=== PATIENT | male | born 1975 | race Two or more races ===

== ENCOUNTER 2024-07-08 13:16 | Emergency (ER) | payer MEDICAID, SELFPAY ==
[2024-07-08 13:25] VITALS: BP 148/98; PULSE 103; RESP 18; TEMP 37; O2SAT 95; BMI 33.0
--- NOTE | 2024-07-08 13:32 | XR_ITS ---
Examination: Shoulder,left, 3 views Technique: Shoulder AP internal rotation, AP external rotation, Y view shoulder, 3 views Exam date and time :July 08, 2024 1442 hours INDICATIONS: Patient fell last week with injury to the shoulder, shoulder pain. FINDINGS: No shoulder fracture or dislocation No AC joint separation IMPRESSION: No shoulder fracture or dislocation
--- NOTE | 2024-07-08 13:32 | EDNOTE_ITS ---
<Statement entered by Ling Ballesteros MD - 07/09/24 06:24> As co-signing physician, I was present and available for consult prn. I concur with the plan and care as documented by the midlevel provider. Upper Extremity Injury RME/HPI General Chief Complaint: Extremity Injury, Upper Stated Complaint: Left shoulder pain Time Seen by Provider: 07/08/24 13:20 Source: patient Arrival date/time: 07/08/24 13:16 48-year-old male with no known medical history presents to the emergency room with a chief complaint of pain and tenderness to his left shoulder after an injury that occurred 3 days ago Mode of arrival: ambulatory Limitations: no limitations Related Data Previous Rx's ?Medication ?Instructions ?Recorded hydroxyzine HCl 25 mg tablet 25 mg PO TID PRN itching #30 tabs 10/12/21 triamcinolone acetonide 0.1 % 1 applic topical QDAY #6 0 mL 10/12/21 lotion Allergies Allergy/AdvReac Type Severity Reaction Status Date / Time No Known Allergies Allergy Verified 07/08/24 13:20 Review of Systems Review of Systems Systems Reviewed: All systems reviewed, normal except as documented Constitutional Constitutional: Reports system reviewed and no additional complaints, except as documented, Denies fatigue, Denies fever(s), Denies headache(s) and Denies weakness Eyes Eyes: Reports system reviewed and no additional complaints, except as documented, Denies blurry vision and Denies change in vision ENT Ears, Nose, Mouth, and Throat: Reports system reviewed and no additional c omplaints, except as documented, Denies otalgia, Denies headache(s), Denies nasal congestion, Denies throat swelling and Denies vertigo Cardiovascular Cardiovascular: Reports system reviewed and no additional complaints, except as documented, Denies chest pain, Denies dyspnea and Denies dyspnea on exertion Respiratory Respiratory: Reports system reviewed and no additional complaints, except as documented, Denies chest congestion, Denies cough, Denies dyspnea, Denies dyspnea on exertion and Denies wheezing Gastrointestinal Gastrointestinal: Reports system reviewed and no additional complaints, except as documented, Denies abdominal pain, Denies cramping, Denies nausea and Denies vomiting Genitourinary Genitourinary: Reports system reviewed and no additional complaints, except as documented, Denies dysuria and Denies hematuria Musculoskeletal Musculoskeletal: Reports system reviewed and no additional complaints, except as documented, Reports arthralgias, Denies back pain, Reports joint swelling and Reports limited range of motion Integumentary/Breasts Skin/Breast: Reports system reviewed and no additional complaints, except as documented and Denies wounds Neurologic Neurologic: Reports system reviewed and no additional complaints, except as documented, Denies confusion, Denies headache(s), Denies lack of coordination, Denies vertigo and Denies weakness Psychiatric Psychiatric: Reports system reviewed and no additional complaints, except as documented, Denies anxiety, Denies confusion, Denies depression, Denies paranoia, Denies suicidal ideation and Denies tactile hallucinations Endocrine Endocrine: Reports system reviewed and no additional complaints, except as documented and Denies fatigue Hematologic/Lymphatic Hematologic/Lymphatic: Reports system reviewed and no additional complaints, except as documented and Denies lymphadenopathy Allergic/Immunologic Allergic/Immunologic: Reports system reviewed and no additional complaints, except as documented, Denies throat swelling, Denies urticaria and Denies wheezing Past Medical History Past Medical History NEUROLOGIC: Positive Neurological Disorders and Migraine CARDIAC: Negative Cardiac Disorders or Congestive Heart Failure RESPIRATORY: Negative Chronic Obstructive Pulmonary Disease (COPD) or Asthma GENITOURINARY: Negative Genitourinary Disorders or Renal Disease ENDOCRINE: Negative Diabetes Mellitus Type 1 or Diabetes Mellitus Type 2 HEMATOLOGIC: Negative Sickle Cell Disease OTHER HISTORY: Negative MRSA Social History SMOKING STATUS: Never smoker SUBSTANCE USE: does not use ED Exam General Limitations: Present no limitations General appearance: Present alert and in no apparent distress Head Head exam: Present atraumatic Eye Eye exam: Present normal appearance, PERRL and EOMI ENT ENT exam: Present normal exam, normal oropharynx and mucous membranes moist Neck Neck exam: Present normal inspection, full ROM and trachea midline Chest Chest inspection: Present normal inspection and symmetric chest wall rise Respiratory Respiratory exam: Present normal lung sounds bilaterally Cardiovascular Cardiovascular exam: Present regular rate, normal rhythm and normal heart sounds Abdominal Exam Abdominal exam: Present soft and normal bowel sounds Extremities Exam Extremities exam: Present normal inspection and full ROM Expanded Upper Extremity Exam Shoulder exam: Present tenderness, swelling and tenderness over AC joint; Absent full ROM Arm exam: Present normal inspection Elbow exam: Present normal inspection Forearm/Wrist exam: Present normal inspection Hand exam: Present normal inspection Back Exam Back exam: Present normal inspection and full ROM Neurological Exam Neurological exam: Present alert, oriented X3 and CN II-XII intact Psychiatric Psychiatric exam: Present normal affect and normal mood Skin Skin exam: Present warm, dry, intact and normal color Course Quality Measures none Orders Category Date Time Status sling [Splint / Immobilizer] STAT Care 07/08/24 13:32 Active XR shoulder LT min 2V Stat Exams 07/08/24 13:32 Completed Vital Signs Vital signs: Vital Signs Temperature 98.6 F 07/08/24 13:25 Pulse Rate 103 H 07/08/24 13:25 Respiratory Rate 18 07/08/24 13:25 Blood Pressure 148/98 H 07/08/24 13:25 Pulse Oximetry (%) 95 07/08/24 13:25 Oxygen Delivery Method Room Air 07/08/24 13:25 Extremity Injury MDM Narrative MDM Narrative:: 48-year-old male with no known medical history presents to the emergency room with a chief complaint of pain and tenderness to his left shoulder after an injury that occurred 3 days ago Patient is hemodynamically stable and in no apparent distress Physical examination shows limited range of motion to the left arm. The patient states he is unable to lift his arm above his head. Patient states he is having tenderness and pain to the left shoulder and there is tenderness with palpation to the AC joint. Patient states he had a fall and heard a pop. X-ray of the left shoulder was completed and was negative for any acute fracture or dislocation. Patient was educated to follow-up with his primary care provider as a referral for an MRI may be indicated if the symptoms continue Patient was discharged and educated to follow-up with primary care provider in the next 24 to 48 hours and return to the emergency room for any evidence of worsening signs or symptoms Patient data External records reviewed:: [facility] previous records Clinical information provided by:: patient Social determinants that could affect healthcare access:: none Patient has the following chronic illnesses:: No chronic illness How is presenting disease/condition affected by chronic disease/condition?: no chronic disease Evaluation data The following diagnostics were reviewed and interpreted by me:: lab results and radiology exam(s) Lab and/or radiology exams considered but not ordered:: Labs and radiology exams considered and ordered Interpretation Summary: Left shoulder x-ray- Medications / Prescriptions Medications or Prescriptions considered but not ordered:: No medication given Medication administrations:: No medication given Consultations Consultation(s) initiated? (list below): No Diagnosis Upper Extremity Injury Differential Diagnosis: dislocation of shoulder, fracture of clavicle and other (Left shoulder dislocation) Most likely diagnosis given after review of the tests above:: Left shoulder sprain Admission Indicated Admission indicated?: not indicated Admission Request Was there a request for admission?: No Disposition Plan Disposition Plan: Discharge Discharge Attestation Discharge Attestation: The patient and all family members were given an opportunity to ask questions and understood the discharge instructions. Discharge instructions specifically effects, indications for sooner follow up or return to the emergency department, and the expected course of current diagnosis. Patient condition: Stable Discharge Plan Plan Patient Disposition: HOME (Self Care) Discharge Disposition comment: Stable Prescriptions/Referrals Prescriptions/Med Rec: No Action hydroxyzine HCl 25 mg tablet 25 mg PO TID PRN (Reason: itching) Qty: 30 0RF triamcinolone acetonide 0.1 % lotion 1 applic topical QDAY Qty: 60 0RF Referrals: Kylie Mayes PA-C [Primary Care Provider] - In 1 week Problem List Clinical Impression: Sprain of left shoulder Patient/Caregiver Discharge Instructions Education Materials: ED Shoulder Sprain Additional Instructions: Please follow-up with your primary care provider in the next 24 to 48 hours X-rays of your shoulder were completed and were negative for any acute fracture or dislocation If your signs and symptoms continue you will need an MRI of your shoulder to assess for any ligament damage or tears For any evidence of worsening signs or symptoms return to the emergency room immediately Print Language: Yi Stand Alone Forms: Hina Award Info., Patient Portal Info Letter SELVIN/AMRITA Supervising Physician SELVIN/AMRITA Supervising Physician: Dr. BALLESTEROS
== END 2024-07-08 14:57 | disposition home or self-care (01) ==
PROVIDERS: Emergency Provider Emergency Medicine; PCP Physician Assistant
DX: S43.402A Unspecified sprain of left shoulder joint, initial encounter (principal); X58.XXXA Exposure to other specified factors, initial encounter
CPT/HCPCS: 73030; 99283

== ENCOUNTER 2024-10-08 00:35 | Inpatient (IN) | payer MEDICAID, SELFPAY ==
[2024-10-08] VITALS (10 sets, daily range): BP systolic 99–148; BP diastolic 66–100; PULSE 70–99; RESP 14–99; TEMP 36.4–37.2; O2SAT 95–99; BMI 33.0; BMI 34.0
--- NOTE | 2024-10-08 01:09 | XR_ITS ---
Examination: CT abdomen with intravenous contrast CT pelvis with intravenous contrast 2-D coronal reconstructions 2-D sagittal reconstructions Date and time of exam:October 08, 2024, 0301 hours, comparison January 27, 2021 INDICATIONS: Lower abdominal pain nausea vomiting beginning one week ago, history small bowel obstruction. CTDI: vol (mGy) 52.41 DLP: (mGycm) 2421 Technique: Multiple axial sections of the abdomen and pelvis have been obtained. 64 slice high-resolution scanner used. 3 mm axial sections have been obtained, post intravenous injection 60 cc [id number] 2-D sagittal, coronal reconstructions obtained. Low dose protocols were performed. One or more of the following dose reduction techniques were used; automated exposure control, adjustment of the mA and/or KV according to patient size, use of iterative reconstruction technique. Findings: Diffuse fatty infiltration throughout the liver. No gallstones. Spleen not in large. Fluid distended stomach. No pancreatic or adrenal mass. No hydronephrosis. Multiple fluid and air distended small bowel loops Normal appendix No free air Tiny fat-containing umbilical hernia No diverticulitis Bladder intact No significant prostatomegaly Moderate disc narrowing L5-S1 IMPRESSION: High-grade mechanical small bowel obstruction pattern
--- NOTE | 2024-10-08 01:10 | EDRME_ITS ---
Rapid Medical Screening Exam [facility], LAT[facility] Arrival date/time: 10/08/24 00:35 48M with history of meth use and possible SBO presents to ED with 1 week of worsening lower ab pain and N/V. Some diarrhea earlier, but not anymore. Chief Complaint: Abdominal Pain Vital signs: Vital Signs Temperature 97.7 F 10/08/24 00:52 Pulse Rate 99 10/08/24 00:52 Respiratory Rate 18 10/08/24 00:52 Blood Pressure 137/90 H 10/08/24 00:52 Pulse Oximetry (%) 95 10/08/24 00:52 Oxygen Delivery Method Room Air 10/08/24 00:52
[2024-10-08 02:17] LABS: Collection Type, Urine Clean Catch
[2024-10-08 02:20] LABS: Basophils # (Auto) 0.0 Thou/mm3 (0.0-0.2); Basophils % (Auto) 0 % (0-2.5); Eosinophils # (Auto) 0.2 Thou/mm3 (0.0-0.5); Eosinophils % (Auto) 2 % (0-10); Hematocrit 47.7 % (41.0-53.0); Hemoglobin 16.1 g/dL (13.5-16.0); Immature Granulocytes Auto 0.04 Thou/mm3 (0.00-0.00); Lymphocytes # (Auto) 1.7 Thou/mm3 (1.0-4.8); Lymphocytes % (Auto) 14 % (10-50); Mean Corpuscular HGB Conc 33.8 g/dl (31.0-37.0); Mean Corpuscular Hemoglobin 27.4 pg (25.0-35.0); Mean Corpuscular Volume 81 fL (80-100); Monocytes # (Auto) 0.8 Thou/mm3 (0.0-0.8); Monocytes % (Auto) 6 % (0-12); Neutrophils # (Auto) 9.7 Thou/mm3 (1.8-7.7); Neutrophils % (Auto) 78 % (37-80); Nucleated Red Blood Cell # 0.00 Thou/mm3 (0.00-0.00); Nucleated Red Blood Cell % 0 /100 WBC (0); Platelet Count 371 Thou/mm3 (140-440); RDW Standard Deviation 40.6 fL (35.1-43.9); Red Blood Count 5.87 Miln/mm3 (4.50-5.90); White Blood Count 12.5 Thou/mm3 (3.8-10.6)
[2024-10-08 02:25] LABS: Amorphous Crystals,Urine Present (Absent); Bacteria,Urine Rare; Bilirubin,Urine Negative (Negative); Blood,Urine Negative (Negative); Clarity,Urine Clear (Clear/Hazy); Color,Urine Yellow (Lt Yel-Yel); Culture Indicated,Urine Not Indicated; Glucose, Urine 4+ (Negative); Ketones,Urine 1+ (Negative); Leukocyte Esterase,Urine Negative (Negative); Nitrite,Urine Negative (Negative); PH,Urine 6.5 (5.0-7.0); Protein,Urine Negative (Neg - Trace); RBC,Urine 7 /hpf (0-3); Specific Gravity,Urine 1.046 (1.001-1.035); Squamous Epithelial Cell,Urine < 1 /hpf (0-5); Urobilinogen,Urine 3.0 mg/dL (0.0-1.0); WBC,Urine 2 /hpf (0-5)
[2024-10-08 02:31] LABS: Amphetamine/Methamp Scrn,U Negative (Negative); Barbiturate Screen,Urine Negative (Negative); Benzodiazepines Screen,Urine Negative (Negative); Benzoylecgonine Screen, Ur Negative (Negative); Fentanyl Screen,Urine Negative (Negative); Opiate Screen,Urine Negative (Negative); THC Screen,Urine Negative (Negative)
[2024-10-08 02:36] LABS: Alanine Aminotransferase 30 U/L (10-49); Albumin, Serum 4.3 gm/dL (3.5-5.0); Albumin/Globulin Ratio 1.6 (1.2-2.2); Alcohol, Blood Medical < 3.0 mg/dL (0-10.0); Alkaline Phosphatase 136 U/L (46-116); Anion Gap 5 (7-16); Aspartate Amino Transferase 18 U/L (0-34); BUN/Creatinine Ratio 10 Ratio (12-20); Bilirubin,Total 0.8 mg/dL (0.3-1.2); Blood Urea Nitrogen 10 mg/dL (9-23); Calcium 10.1 mg/dL (8.3-10.6); Calcium (Corrected) 10.1 mg/dL (8.5-10.1); Carbon Dioxide 31.0 mMol/L (20.0-31.0); Chloride 100 mMol/L (98-107); Creatinine (Component) 1.0 mg/dL (0.6-1.3); Estimated Creatinine Clearance 116.6 mL/min (>60); Globulin 2.7 gm/dL (2.3-3.5); Glucose 326 mg/dL (74-106); Lipase 27 U/L (12-53); Osmolality,Calculated 283 (275-295); Potassium 4.5 mMol/L (3.4-5.1); Sodium 136 mMol/L (136-145); Total Protein 7.0 gm/dL (5.7-8.2); eGFR > 60 See Note
[2024-10-08] MEDS: ONDANSETRON INJ 2 MG/ML INJ 2 ML 4 MG IV (02:45)
--- NOTE | 2024-10-08 04:05 | PD.EDABDPN ---
ED Abdominal Pain RME/HPI General Chief Complaint: Abdominal Pain Stated complaint: UPPER ABD PAIN Arrival date/time: 10/08/24 00:35 RME / HPI RME / HPI narrative: 10/08/24 00:35 48M with history of meth use and possible SBO presents to ED with 1 week of worsening lower ab pain and N/V. Some diarrhea earlier, but not anymore. DR. SAN MAIN ED EVALUATION: Patient with onset of nausea, vomiting, and diarrhea x 2 weeks [employer] diarrhea tapered off, but vomiting persistent throughout the week. Umbilical abdominal discomfort, radiating pressure-like sensation with associated abdominal distension. No fever, although occasional chills. Also reports nasal congestion and body aches? PMH includes DM and HTN. PSH is unremarkable. Social history is negative for alcohol use and smoking. No obvious infectious exposure. Related Data Previous Rx's ?Medication ?Instructions ?Recorded hydroxyzine HCl 25 mg tablet 25 mg PO TID PRN itching #30 tabs 10/12/21 triamcinolone acetonide 0.1 % 1 applic topical QDAY #60 mL 10/12/21 lotion ibuprofen 600 mg tablet 600 mg PO Q8H PRN fever or pain 07/08/24 #20 tabs Allergies Allergy/AdvReac Type Severity Reaction Status Date / Time No Known Allergies Allergy Verified 10/08/24 00:40 Review of Systems Review of Systems Systems Reviewed: All systems reviewed, normal except as documented Past Medical History Past Medical History NEUROLOGIC: Positive Neurological Disorders and Migraine ENDOCRINE: Positive Diabetes Mellitus Type 2 ED Exam Narrative Physical exam: GEN. APPEARANCE: The patient is alert awake oriented X-3 in no distress, sumulant,easily arousable, lying down comfortably, does not look ill/toxic. Patient has good eye contact. Patient is cooperative. VITALS: All vitals were reviewed and the pulse ox is 99% on room air which is normal according to my interpretation. HEENT: Normocephalic, atraumatic. Pupils are equal and reactive. Oral mucosa is moist. Patent Nares NECK: Supple, nontender, no thyromegaly, no meningismus, no JVD, no step offs CHEST: Symmetrical, atraumatic, and with equal expansion , Nontender on palpation no deformity and no crepitus. CARDIOVASCULAR: Heart regular rhythm no murmur or gallop rub or extra beats. LUNGS: Clear to auscultation bilaterally with symmetrical chest rise. No laboring tachypnea or wheezing. No intercostal subcostal retraction. No rales and no rhonchi. ABDOMEN: Soft, flat, 1+ distended abdomen, generalized tenderness, no guarding or peritoneal findings, hypertypanic positive. No rebound tenderness. There are no abnormal masses palpated. Active and normal bowel sounds. EXTREMITIES: Nontender. No edema. No cyanosis. Patient is able to move all 4 extremities well, with full ROM and good CSM. SKIN: Warm and dry, no jaundice or rashes noted. MUSCULOSKELETAL: No lubar or midline bony tenderness. There is no CVA tenderness. No paraspinal muscle spasm or tenderness. NEURO: Patient is MILLER x 4, Cranial nerves II through XII grossly intact. There is no focal neurologic deficits noted. GCS is 15, PNS and SUPERVISOR EVAPORATOR appear grossly intact. PSYCHIATRIC: Patient is in normal mood and affect, cooperative, no SI or HI or hallucinations. Course Quality Measures none Orders Category Date Time Status CT Screening NOW Care 10/08/24 01:10 Active Insert IV NOW Care 10/08/24 01:[address] abdomen pelvis w con Stat Exams 10/08/24 01:09 Taken Alcohol, Blood Medical Stat Lab 10/08/24 02:10 Completed CBC Stat Lab 10/08/24 02:10 Completed CMP [Comprehensive Metabolic Panel] Stat Lab 10/08/24 02:10 Completed Drug Screen,Urine Stat Lab 10/08/24 01:44 Completed Lipase Stat Lab 10/08/24 02:10 Completed Urinalysis, C/S if Indicated Stat Lab 10/08/24 01:44 Completed Ondansetron Inj [Zofran Inj] Med 10/08/24 01:10 Discontinued 4 mg IV X1 ONE Vital Signs Vital signs: Vital Signs Temperature 97.7 F 10/08/24 00:52 Pulse Rate 99 10/08/24 00:52 Respiratory Rate 18 10/08/24 00:52 Blood Pressure 137/90 H 10/08/24 00:52 Pulse Oximetry (%) 95 10/08/24 00:52 Oxygen Delivery Method Room Air 10/08/24 00:52 Abdominal Pain MDM MDM Narrative MDM Narrative:: Scribe Attestation: I, Lyn Chaya, am scribing for and in the presence of Dr. San. Provider Notation: Although this document has been carefully reviewed, there may still be some phonetic and other typographical errors. These errors are purely grammatical due to imperfections in the software program and should not be construed in any way to? compromise the substance of the patient's medical care during this visit. Patient with onset of nausea, vomiting, and diarrhea x 2 weeks [employer] diarrhea tapered off, but vomiting persistent throughout the week. Umbilical abdominal discomfort, radiating pressure-like sensation with associated abdominal distension. Please see PE findings. Laboratory markings NEED [facility] Patient data External records reviewed:: [facility] previous records (Reviewed prior ED records from 07/08/24. Patient was seen for Sprain of left shoulder.) Clinical information provided by:: patient Social determinants that could affect healthcare access:: none Patient has the following chronic illnesses:: Diabetes Mellitus Type 2, Migraine How is presenting disease/condition affected by chronic disease/condition?: exacerbated by Evaluation data The following diagnostics were reviewed and interpreted by me:: lab results and radiology exam(s) Lab and/or radiology exams considered but not ordered:: None Interpretation Summary: RADIOLOGY Abdomen/Pelvis CT: Pending official radiology report. Medications / Prescriptions Medications or Prescriptions considered but not ordered:: None Medication administrations:: Medication Administration History Discontinued Medications Ondansetron HCl (Ondansetron Inj 2 Mg/Ml Inj 2 Ml) 4 mg IV X1 ONE; Protocol Stop: 10/08/24 01:11 Last Admin: 10/08/24 02:45 Dose: 4 mg Documented By: DT See above if any. Consultations Consultation(s) initiated? (list below): Yes Consultation #1 (Physician, Specialty, Details): Hospitalist made aware of the patient?s HPI, PMHx, lab and/or radiology results. Treatment plan was discussed. Will admit for further evaluation and management. Accepts patient for admission. Diagnosis Differential diagnosis abdominal pain: abdominal pain, acute appendicitis, calculus of kidney, constipation, diverticulitis, gastroenteritis, pancreatitis and small bowel obstruction Most likely diagnosis given after review of the tests above:: Small bowel obstruction Admission Indicated Admission indicated?: indicated Explain why admission is indicated or not indicated:: SBO Admission Request Was there a request for admission?: Yes Admission Attestation Admission request attestation: Discussed case with [] from Hospitalist service regarding admission. Discussed patients ED course, exam findings, labs, and radiology results. The Hospitalist [agrees,declines] to accept the patient for admission. Disposition Plan Disposition Plan: Admit Discharge Plan Plan Patient Disposition: Admit Acute Care w/in Hospital Problem List Clinical Impression: Small bowel obstruction
--- NOTE | 2024-10-08 04:32 | PRELIM_ITS ---
CT scan of the abdomen and pelvis with intravenous contrast with delayed phase (axial sections with sagittal and coronal reformats) October 08, 2024 at 0258 hours Clinical History: Lower abdominal pain and N/V. Comparison: None available at the time of this report. Findings: The lung bases are clear. The gallbladder, pancreas, spleen, kidneys and adrenals are unremarkable. Dilated small bowel loops measuring up to 5.0 cm with air-fluid levels within and transition point in the lower abdomen. No evidence of appendicitis. Liver steatosis. There is no mesenteric or retroperitoneal adenopathy. The urinary bladder is unremarkable. There is no free fluid or free air. The osseous structures are unremarkable. Diverticulosis of the colon. Impression: Small bowel obstruction. Liver steatosis. Discussion Details: Results verbally communicated to : Dr. Arnett at 04:29 AM 10/08/2024 Report Electronically Signed By: Parag Castorena 10/08/2024 4:31:30 AM [EST]
--- NOTE | 2024-10-08 05:53 | XR_ITS ---
Examination: Abdominal series 3 views including AP portable upright chest TECHNIQUE: AP portable upright chest, AP upright AP supine abdomen 3 views Date and time: December 08, 2024 0608 hours INDICATIONS: Abdominal pain and distention this week. FINDINGS: No pneumonia or pulmonary edema. High-grade mechanical small bowel obstruction, air distended small bowel loops with differential air-fluid levels No free air IMPRESSION: High-grade mechanical small bowel obstruction
--- NOTE | 2024-10-08 05:55 | XR_ITS ---
Examination: Small bowel series AP abdomen 3 views supine Date and time: 30/10/2024 1325 hours INDICATIONS: Abdominal distention this week, high-grade mechanical small bowel obstruction on CT abdomen pelvis study 0258 hours this morning TECHNIQUE AND FINDINGS: Patient received 120 cc Gastrografin through the orogastric tube Immediate 30 minute and 2 hours AP supine abdomen films have been obtained Air distended small bowel loops 2 hour film shows contrast in distended jejunal loops IMPRESSION: Small bowel obstruction pattern Recommend follow-up AP supine abdomen films 4:00 PM, 6:00 PM, 8:00 PM
--- NOTE | 2024-10-08 05:56 | ESHP_ITS ---
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 He reports ~7?8 episodes of non-bloody, brownish emesis daily. Initially had diarrhea during the first few days, which has since resolved. Over the past week he has developed diffuse crampy abdominal pain, currently rated 9/10, non-radiating. No hematemesis, melena, or hematochezia. No dysuria or urinary complaints. Reports chills but denies measured fevers. Denies chest pain, shortness of breath, or dizziness. Notably, the patient reports a similar episode 3?4 years ago requiring hospitalization and NG tube decompression for presumed small bowel obstruction, though he did not undergo surgery at that time. No abdominal surgeries to date. No sick contacts, suspicious food intake, or recent travel. Review of Systems * General: Chills, no fevers, no weight loss. * HEENT: No headaches, no visual changes. * Cardiac: Denies chest pain, palpitations. * Respiratory: No cough, no shortness of breath. * GI: Severe nausea/vomiting, crampy diffuse abdominal pain, prior diarrhea (resolved). No hematemesis, melena, hematochezia. * : No dysuria, hematuria. * Remaining systems reviewed and negative. 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 * Prior SBO admission (3?4 years ago, NG tube, no surgery) Past Surgical History * None Medications * Metformin * Weekly insulin (unspecified formulation) * Antihypertensive (patient unable to recall name) Allergies * No known drug allergies Family History * Denies cancer or GI malignancy * Otherwise non-contributory Social History * Denies tobacco, alcohol, or drug use * Remote smoking/drug use, quit years ago Exam Vital Signs Temp Pulse Resp BP Pulse Ox O2 Del Method 98.9 F 82 18 141/91 H 95 Room Air 10/08/24 05:12 10/08/24 05:12 10/08/24 05:12 10/08/24 05:12 10/08/24 05:12 10/08/24 05:12 Narrative Exam General: Obese male, mildly distressed from abdominal pain, alert and oriented. HEENT: No scleral icterus. Oral mucosa dry. Cardiac: Regular rate and rhythm, no murmurs. Respiratory: Clear to auscultation bilaterally. Abdomen: Soft throughout but firm in mid epigastric, diffusely tender, no rebound or guarding, nondistended. Hypoactive bowel sounds. Extremities: No edema. Neuro: AO?3. . No new focal deficits Results: Labs 10/08/24 02:10 10/08/24 02:10 Labs: Short CBC 10/08/24 Range/Units 02:10 WBC 12.5 H (3.8-10.6) Thou/mm3 Hgb 16.1 H (13.5-16.0) g/dL Hct 47.7 (41.0-53.0) % Plt Count 371 (140-440) Thou/mm3 BMP 10/08/24 02:10 Sodium 136 Potassium 4.5 Chloride 100 Carbon Dioxide 31.0 BUN 10 Creatinine 1.0 Glucose 326 H Calcium 10.1 Liver Function 10/08/24 Range/Units 02:10 Total Bilirubin 0.8 (0.3-1.2) mg/dL AST 18 (0-34) U/L ALT 30 (10-49) U/L Alkaline Phosphatase 136 H (46-116) U/L Albumin 4.3 (3.5-5.0) gm/dL Urine 10/08/24 Range/Units 01:44 Urine Color Yellow (Lt Yel-Yel) Urine Clarity Clear (Clear/Hazy) Urine pH 6.5 (5.0-7.0) Ur Specific [place] 1.046 H (1.001-1.035) Urine Protein Negative (Neg - Trace) Urine Glucose (UA) 4+ A (Negative) Quality Measures Quality Measures VTE prophylaxis Medications Home Medications and Allergies Allergies Allergy/AdvReac Type Severity Reaction Status Date / Time No Known Allergies Allergy Verified 10/08/24 00:40 Visit Medications Acetaminophen (Acetaminophen 325 Mg Tablet) 650 mg PO Q6H PRN PRN Reason: Fever >100.4 or pain 1-3 Stop: 11/07/24 05:45 Hydrocodone Bitart/Acetaminophen (Hydrocodone/Apap 5/325 Tablet) 1 tab PO Q4HR PRN PRN Reason: PAIN SCALE 4-6 (Moderate Stop: 10/13/24 05:45 Dextrose (Dextrose 50%-Water Inj 50 Ml Syringe) 25 ml IV Q15MIN PRN PRN Reason: BG 50-70 responsive npo pt Stop: 11/07/24 05:45 Dextrose (Dextrose 50%-Water Inj 50 Ml Syringe) 50 ml IV Q15MIN PRN PRN Reason: BG <50 OR BG <70 & pt unresponsive Stop: 11/07/24 05:45 Enoxaparin Sodium (Enoxaparin Sod Inj 40 Mg/0.4 Ml Syringe) 40 mg SC QDAY [facility] Stop: 10/22/24 08:59 Glucagon (Glucagon Inj 1 Mg Vial) 1 mg IM Q15MIN PRN PRN Reason: BG <70, and no IV access Sodium Chloride (Ns) 1,000 mls @ 75 mls/hr IV .[id number] [facility] Stop: 11/07/24 05:59 Insulin Human Lispro (Insulin Lispro (Admelog) 1 Unit/0.01 Ml Unit) 0 unit SC Q6HR RENATO; Protocol Stop: 11/07/24 05:59 Morphine Sulfate (Morphine Sulf Inj 10 Mg/Ml Vial) 2 mg IVP Q4HR PRN PRN Reason: PAIN SCALE 7-10 (Severe Stop: 10/13/24 05:45 Ondansetron HCl (Ondansetron Inj 2 Mg/Ml Inj 2 Ml) 4 mg IVP Q6H PRN; Protocol PRN Reason: NAUSEA OR VOMITING Stop: 11/07/24 05:45 Pantoprazole Sodium (Pantoprazole Inj 40 Mg Vial) 40 mg IVP QDAY [facility] Stop: 11/07/24 08:59 Discontinued Medications Ondansetron HCl (Ondansetron Inj 2 Mg/Ml Inj 2 Ml) 4 mg IV X1 ONE; Protocol Stop: 10/08/24 01:11 Last Admin: 10/08/24 02:45 Dose: 4 mg Assessment & Plan Plan 48-year-old male with history of type 2 diabetes, hypertension, and prior SBO (non-operative, NG tube 3?4 years ago) presenting with one week of intractable nausea/vomiting and severe crampy abdominal pain, now admitted with CT evidence of small bowel obstruction. # Small bowel obstruction, unspecified cause Recurrent SBO (prior NG decompression 3?4 years ago, no surgery), now with severe vomiting, abdominal pain, CT evidence of obstruction. Stable, no peritonitis. Plan: * Admit to med tele * NPO, IV fluids, electrolyte repletion * NG tube for decompression if vomiting continues * Strict I/O, daily weights * Trend CBC, CMP, lactate * Serial abdominal exams # Hyperglycemia in type 2 diabetes mellitus Glucose 326 on presentation, no ketones, no anion gap. Plan: * Check HbA1c * Insulin sliding scale while NPO * Monitor BMP and fingersticks ACHS # Hypertension Chronic, unclear home regimen. Plan: * Resume home antihypertensive once med rec complete and able to take PO * PRN IV antihypertensive if SBP >180 # Leukocytosis Mild (WBC 12.5), likely reactive. Afebrile, lipase and UA negative. Plan: * Monitor CBC * Low threshold for antibiotics if fevers, worsening abdominal findings, or suspicion for ischemic bowel # History of Glass?s palsy Chronic right facial weakness, stable. Health Maintenance Disposition: Admit to medicine with surgical consult Diet: NPO Thromboprophylaxis: SQ heparin GI prophylaxis: PPI Code Status: Full code ----- Plan discussed with attending physician Dr. Michelle Terry MD PGY-1 Internal Medicine Attending Provider Attestation/Addendum I have discussed and was present for the essential components of the history, physical examination, diagnosis, and treatment plan with the resident. I agree with the patient's care as documented by the resident and amended herein by me. Angel Martinez DO. Although this document has been carefully reviewed, there may still be some phonetic and other typographical errors. These errors are purely grammatical due to imperfections in the software program and should not be construed in any way to compromise the substance of the patient's medical care during this visit.
[2024-10-08 06:25] LABS: Glucose Estimated Average 306 mg/dL (80-131); Hemoglobin A1C 12.3 % Hgb (4.8-6.0)
[2024-10-08] MEDS: INSULIN LISPRO (AdmeLOG) 1 UNIT/0.01 ML UNIT SC ×4 (06:26→20:43)
[2024-10-08] MEDS: SODIUM CHLORIDE 0.9% 1000 ML 1,000 ML 75 ML IV (06:33)
[2024-10-08 06:40] LABS: Lactate (Lactic Acid) 1.3 mMol/L (0.4-2.0)
--- NOTE | 2024-10-08 07:27 | XR_ITS ---
Examination: AP chest single view Technique one AP portable upright chest single view Date and time: October 08, 2024 0730 hours, comparison October 08, 2024 0608 hours INDICATIONS: Post orogastric tube placement. FINDINGS: Normal heart size. Lungs are clear. The osseous structures are intact IMPRESSION: No active disease
[2024-10-08] MEDS: ENOXAPARIN SOD INJ 40 MG/0.4 ML SYRINGE SC (08:04)
[2024-10-08] MEDS: INSULIN DEGLUDEC 5 UNIT/0.05 ML (PER 5 UNITS) SC ×2 (08:04→20:42)
[2024-10-08] MEDS: ONDANSETRON INJ 2 MG/ML INJ 2 ML 4 MG IVP (08:21)
[2024-10-08] MEDS: MORPHINE SULF INJ 10 MG/ML VIAL 2 MG IVP (08:22)
--- NOTE | 2024-10-08 11:55 | ESPR_ITS ---
<Statement entered by Khanh Rojas MD - 10/08/24 14:52> I have reviewed the note and agree with the resident's assessment & plan with exceptions as below. I have personally reviewed labs, imaging, home meds/prior records, examined the patient, formulated and discussed management plan with the IM team. Patient examined at bedside today. No acute overnight events. Patient to continue with small bowel series, will clamp NG tube at this time. Patient does say that he has had these symptoms before, however he denies a history of abdominal surgeries, however he does take Ozempic. Will follow-up with small bowel x-rays. Repeat hematology and chemistry in AM. Continue with IV fluids, antiemetics and IV pain control. Khanh Rojas, PGY-2 Internal Medicine Documentation for date of: 10/08/24 Subjective Subjective Interval history: 48 y/o M w/ PMH of DM, Hypertension, [place] palsy, and small bowel obstruction (about 2-3 years ago), admission day 1 for SBO (confirmed by CT and X-ray abdomen), nausea, vomiting, and abdominal pain. Patient seen at bedside today. Resting comfortably, still notes some abdominal pain, but is tolerable and improved from yesterday. Patient denies currently feeling nauseous but vomited 3 hours ago. Patient is NPO with NG tube in place. Exam Vital Signs Temp Pulse Resp BP Pulse Ox O2 Del Method 98.6 F 79 16 148/100 H 95 Room Air 10/08/24 07:00 10/08/24 07:00 10/08/24 07:00 10/08/24 07:00 10/08/24 07:00 10/08/24 07:00 Narrative Exam General: Patient is fully alert and oriented. Mild distress due to abdominal pain and having a tube in the nose. Cardio: RRR, no mumurs, gallops or rubs appreciated. Resp: Normal lung sounds MSK: No muscle or joint paint to movement or palpation GI: Visual abdominal distension. Diffuse abdominal tenderness, most prominent in the epigastric region. Bowel sounds diminished in all quadrants. Extremities: No presence of trace or pitting edema in lower extremities bilaterally, dorsalis pedis pulses +2 bilaterally Neuro: AAOx3, no focal motor or sensory deficits in the UE or LE bilat Psych: Good judgement, thought and behavior. Cooperative Objective Labs 10/09/24 04:48 10/09/24 04:48 Labs: Laboratory Results - last 24 hr 10/08/24 10/08/24 10/08/24 01:44 02:10 06:35 WBC 12.5 H RBC 5.87 Hgb 16.1 H Hct 47.7 MCV 81 MCH 27.4 MCHC 33.8 RDW Std Deviation 40.6 Plt Count 371 Neut % (Auto) 78 Lymph % (Auto) 14 [place] % (Auto) 6 Eos % (Auto) 2 Baso % (Auto) 0 Neut # (Auto) 9.7 H Lymph # (Auto) 1.7 [place] # (Auto) 0.8 Eos # (Auto) 0.2 Baso # (Auto) 0.0 Immature Gran # (Auto) 0.04 H Absolute Nucleated RBC 0.00 Immature Gran % 0 Nucleated RBC % 0 Sodium 136 Potassium 4.5 Chloride 100 Carbon Dioxide 31.0 Anion Gap 5 L BUN 10 Creatinine 1.0 Estim Creat Clear Calc 116.6 eGFR > 60 BUN/Creatinine Ratio 10 L Glucose [address] Glu mg/dL 306 H Hemoglobin A1c 12.3 H Calculated Osmolality 283 Lactic Acid 1.3 Calcium 10.1 Corrected Calcium 10.1 Total Bilirubin 0.8 AST 18 ALT 30 Alkaline Phosphatase 136 H Total Protein 7.0 Albumin 4.3 Globulin 2.7 Albumin/Globulin Ratio 1.6 Lipase 27 Ur Collection Type Clean Catch Urine Color Yellow Urine Clarity Clear Urine pH 6.5 Ur Specific [place] 1.046 H Urine Protein Negative Urine Glucose (UA) 4+ A Urine Ketones 1+ A Urine Blood Negative Urine Nitrite Negative Urine Bilirubin Negative Urine Urobilinogen (Auto) 3.0 Ur Leukocyte Esterase Negative Urine RBC 7 H Urine WBC 2 Ur Squamous Epith Cells < 1 Amorphous Crystals Present A Urine Bacteria Rare Ur Culture Indicated? Not Indicated Urine Opiates Screen Negative Urine Fentanyl Screen Negative Ur Barbiturates Screen Negative U Amphetamin/Meth Scrn Negative U Benzodiazepines Scrn Negative U Cocaine Metab Screen Negative U Marijuana (THC) Screen Negative Ethyl Alcohol < 3.0 Quality Measures Quality Measures VTE prophylaxis Assessment & Plan Assessment Current Active Medications: Generic Name Dose Route Start Last Admin Trade Name Freq PRN Reason Stop Dose Admin Acetaminophen 650 mg 10/08/24 05:46 Acetaminophen 325 Mg Tablet PO 11/07/24 05:45 Q6H PRN Fever >100.4 or pain 1-3 Hydrocodone Bitart/Acetaminophen 1 tab 10/08/24 05:46 Hydrocodone/Apap 5/325 Tablet PO 10/13/24 05:45 Q4HR PRN PAIN SCALE 4-6 (Moderate Dextrose 25 ml 10/08/24 05:46 Dextrose 50%-Water Inj 50 Ml Syringe IV 11/07/24 05:45 Q15MIN PRN BG 50-70 responsive npo pt Dextrose 50 ml 10/08/24 05:46 Dextrose 50%-Water Inj 50 Ml Syringe IV 11/07/24 05:45 Q15MIN PRN BG <50 OR BG <70 & pt unresponsive Enoxaparin Sodium 40 mg 10/08/24 09:00 10/08/24 08:04 Enoxaparin Sod Inj 40 Mg/0.4 Ml Syringe SC 10/22/24 08:59 40 mg QDAY RENATO Administration Glucagon 1 mg 10/08/24 05:46 Glucagon Inj 1 Mg Vial IM Q15MIN PRN BG <70, and no IV access Hydralazine HCl 10 mg 10/08/24 05:58 Hydralazine Inj 20 Mg/Ml Vial IVP 11/07/24 05:57 Q4HR PRN SBP > 180 Hydralazine HCl 10 mg 10/08/24 11:52 Hydralazine Inj 20 Mg/Ml Vial IVP 11/07/24 11:51 Q4H PRN BP > 180/110 Sodium Chloride 1,000 mls @ 75 mls/hr 10/08/24 06:00 10/08/24 06:33 Ns IV 11/07/24 05:59 75 mls/hr .[id number] RENATO Administration Insulin Degludec 5 unit 10/08/24 21:00 Insulin Degludec 5 Unit/0.05 Ml (Per 5 Units) SC 10/08/24 21:01 X1 ONE Insulin Degludec 10 unit 10/09/24 21:00 Insulin Degludec 5 Unit/0.05 Ml (Per 5 Units) [place] 11/08/24 20:59 HS RENATO Insulin Human Lispro 0 unit 10/08/24 06:00 10/08/24 06:26 Insulin Lispro (Admelog) 1 Unit/0.01 Ml Unit SC 11/07/24 05:59 3 unit Q6HR RENATO Administration Protocol Morphine Sulfate 2 mg 10/08/24 05:46 10/08/24 08:22 Morphine Sulf Inj 10 Mg/Ml Vial IVP 10/13/24 05:45 2 mg Q4HR PRN Administration PAIN SCALE 7-10 (Severe Ondansetron HCl 4 mg 10/08/24 05:46 10/08/24 08:21 Ondansetron Inj 2 Mg/Ml Inj 2 Ml IVP 11/07/24 05:45 4 mg Q6H PRN Administration NAUSEA OR VOMITING Protocol Pantoprazole Sodium 40 mg 10/08/24 09:00 10/08/24 08:04 Pantoprazole Inj 40 Mg Vial IVP 11/07/24 08:59 40 mg QDAY RENATO Administration Plan 48 y/o M with history of type 2 diabetes, hypertension, and prior SBO (required NG tube decompression) presenting with one week of intractable nausea/vomiting and severe crampy abdominal pain, now admitted with imaging confirmed mechanical small bowel obstruction. # Small bowel obstruction Recurrent SBO (prior NG decompression 3?4 years ago), now with severe vomiting, abdominal pain, CT evidence of obstruction. Stable Plan: * NPO, IV fluids, electrolyte repletion as needed * NG tube in place * Small bowel serial abdominal exam * Strict I/O, daily weights * Trend CBC, CMP, lactate # Hyperglycemia in type 2 diabetes mellitus Glucose 326 on presentation, last fingerstick reading of 225, A1c of 12.3 Plan: * Insulin sliding scale while NPO * Monitor BMP and fingersticks ACHS # Hypertension Chronic Plan: * Resume home antihypertensive once back to PO * PRN IV 10 mg hydralazine if BP 180/110 # Leukocytosis Mild (WBC 12.5), likely reactive. Afebrile, lipase and UA negative. Plan: * Monitor CBC # History of Glass?s palsy Chronic right facial weakness, stable Health Maintenance: Code Status: Full DVT Prophylaxis: SCDs GI Prophylaxis: Protonix Diet: NPO [place]: None Lines: NG tube Supplemental O2: None Disposition: Med Surg Patient seen and care discussed with my attending physician, Dr. Esposito and my senior resident, Dr. Crystal Lemons, [facility] Attending Provider Attestation/Addendum I reviewed labs, imaging, EKG, home medications and prior available records. Face to face evaluation was performed by me. I have personally examined the patient and discussed assessment and plan with the IM team. I reviewed the resident note and agree with the plan with exceptions as below. High-grade SBO Uncontrolled diabetes mellitus with hyperglycemia, type II Leukocytosis Ordered small bowel series IV fluids Management of nausea/pain as needed Continue insulin therapy and monitor fingersticks A1c is 12.5 Trend WBC
--- NOTE | 2024-10-08 16:30 | XR_ITS ---
Examination: Abdomen AP single view Technique: AP portable supine abdomen, single view Exam date and time: October 08, 2024, 1620 hrs. Indications: 5 Delayed film post small bowel series today, CT abdomen study 0604 hrs. Yesterday small bowel obstruction pattern Findings: Contrast in markedly distended small bowel loops. Impression: High-grade mechanical small bowel obstruction, recommend follow-up films 6:00 PM 8:00 PM 10:00 PM.
--- NOTE | 2024-10-08 18:30 | XR_ITS ---
Examination: Abdomen AP single view Technique: AP portable supine abdomen, single view Exam date and time: October 08, 2024 1828 hrs. Indications: Abdominal distention this week, 7 mm the film post small bowel series today. Findings: Contrast in mildly distended small bowel loops but contrast present throughout the colon Impression: Negative for complete small bowel obstruction, no further films are needed
[2024-10-09] VITALS (7 sets, daily range): BP systolic 95–129; BP diastolic 60–94; PULSE 60–88; RESP 16–99; TEMP 36.1–36.6; O2SAT 95–97; BMI 34.2
[2024-10-09] MEDS: SODIUM CHLORIDE 0.9% 1000 ML 1,000 ML 75 ML IV (03:24)
[2024-10-09 05:12] LABS: Basophils # (Auto) 0.0 Thou/mm3 (0.0-0.2); Basophils % (Auto) 0 % (0-2.5); Eosinophils # (Auto) 0.6 Thou/mm3 (0.0-0.5); Eosinophils % (Auto) 6 % (0-10); Hematocrit 41.2 % (41.0-53.0); Hemoglobin 13.5 g/dL (13.5-16.0); Immature Granulocytes Auto 0.04 Thou/mm3 (0.00-0.00); Lymphocytes # (Auto) 2.0 Thou/mm3 (1.0-4.8); Lymphocytes % (Auto) 19 % (10-50); Mean Corpuscular HGB Conc 32.8 g/dl (31.0-37.0); Mean Corpuscular Hemoglobin 27.2 pg (25.0-35.0); Mean Corpuscular Volume 83 fL (80-100); Monocytes # (Auto) 1.0 Thou/mm3 (0.0-0.8); Monocytes % (Auto) 10 % (0-12); Neutrophils # (Auto) 6.6 Thou/mm3 (1.8-7.7); Neutrophils % (Auto) 65 % (37-80); Nucleated Red Blood Cell # 0.00 Thou/mm3 (0.00-0.00); Nucleated Red Blood Cell % 0 /100 WBC (0); Platelet Count 305 Thou/mm3 (140-440); RDW Standard Deviation 42.0 fL (35.1-43.9); Red Blood Count 4.97 Miln/mm3 (4.50-5.90); White Blood Count 10.1 Thou/mm3 (3.8-10.6)
[2024-10-09 05:42] LABS: Alanine Aminotransferase 31 U/L (10-49); Albumin, Serum 3.6 gm/dL (3.5-5.0); Albumin/Globulin Ratio 1.6 (1.2-2.2); Alkaline Phosphatase 77 U/L (46-116); Anion Gap 9 (7-16); Aspartate Amino Transferase 24 U/L (0-34); BUN/Creatinine Ratio 9 Ratio (12-20); Bilirubin,Total 0.8 mg/dL (0.3-1.2); Blood Urea Nitrogen 8 mg/dL (9-23); Calcium 9.0 mg/dL (8.3-10.6); Calcium (Corrected) 9.3 mg/dL (8.5-10.1); Carbon Dioxide 27.2 mMol/L (20.0-31.0); Chloride 104 mMol/L (98-107); Creatinine (Component) 0.9 mg/dL (0.6-1.3); Estimated Creatinine Clearance 131.7 mL/min (>60); Globulin 2.2 gm/dL (2.3-3.5); Glucose 169 mg/dL (74-106); Magnesium 1.8 mg/dL (1.6-2.6); Osmolality,Calculated 281 (275-295); Phosphorous 3.3 mg/dL (2.4-5.1); Potassium 4.1 mMol/L (3.4-5.1); Sodium 140 mMol/L (136-145); Total Protein 5.8 gm/dL (5.7-8.2); eGFR > 60 See Note
[2024-10-09] MEDS: ENOXAPARIN SOD INJ 40 MG/0.4 ML SYRINGE SC (08:46)
[2024-10-09] MEDS: SODIUM CHLORIDE 0.9% 1000 ML 1,000 ML 999 ML IV (08:46)
--- NOTE | 2024-10-09 11:08 | PC.SS ---
UNBUNDLER conducted bedside contact with the patient conduct initial assessment and to discuss discharge planning.? Patient confirmed demographic information.? Patient resides at home with sister, Arleen Saez .? Patient is currently unemployed.? Patient reports receiving SNAP benefits.? Patient does not utilize any form of DME to assist with ambulation.? Patient does not utilize home oxygen.? Patient describes the ability to complete ADL?s independently.? Patient identified sister, Arleen Saez; as medical surrogate decision maker.? Patient?s PCP is Nikole Ponce.? Patient does not participate with dialysis.? Patient does not possess any specialty providers.? Patient reports history of diabetes.? Patient utilizes [facility] for medication services.? Plan is for the patient to return home at the time of discharge.? Family will provide transportation on behalf of the patient. ?No further discharge needs identified by the patient.? No further intervention required at this time, health social work professor will be available to address any further concerns.? Next of Kin: Arleen Saez D/C Plan: Home
[2024-10-09] MEDS: INSULIN LISPRO (AdmeLOG) 1 UNIT/0.01 ML UNIT SC ×2 (11:13→17:29)
--- NOTE | 2024-10-09 11:23 | ESPR_ITS ---
<Statement entered by Khanh Rojas MD - 10/09/24 14:21> I have reviewed the note and agree with the resident's assessment & plan with exceptions as below. I have personally reviewed labs, imaging, home meds/prior records, examined the patient, formulated and discussed management plan with the IM team. Pt examined at bedside today. Will advance pt's diet, removed NG tube and SBO has resolved from plain films. Pt had a BM. Will see how pt tolerates diet as we advance to full liquid. Anticipiate d/c w/in next 24-48 hrs. Repeat hematology and chemistry in AM. Khanh Rojas, PGY-2 Internal Medicine Documentation for date of: 10/09/24 Subjective Subjective Interval history: 48 y/o M w/ PMH of DM, Hypertension, Vinson palsy, and small bowel obstruction (about 2-3 years ago), admission day 2 for SBO (confirmed by CT and X-ray abdomen), nausea, vomiting, and abdominal pain. Small bowel series were performed yesterday. X-ray from last night showed mildly distended small bowel loops but contrast throughout the colon, negative for complete small bowel obstruction. Patient had a watery bowel moment last night and another one this morning. No other acute overnight events. Patient was seen at bedside today morning, resting comfortably. Noted significant improvement in abdominal pain and overall looked alot more comfortable than yesterday. Currently on clear liquid diet, would like to advance. Exam Vital Signs Temp Pulse Resp BP Pulse Ox O2 Del Method 97.3 F 60 16 115/82 97 Room Air 10/09/24 08:00 10/09/24 08:00 10/09/24 08:00 10/09/24 08:00 10/09/24 08:00 10/09/24 08:00 Narrative Exam General: Patient is fully alert and oriented. No acute distress Cardio: RRR, no mumurs, gallops or rubs appreciated. Resp: Normal lung sounds. No rales, crackles, or wheezing. MSK: No muscle or joint paint to movement or palpation GI: Abdominal distension improved but still present.Abdomen soft to palpation, no fluid wave. Mild diffuse abdominal tenderness, more prominent in the epigastric region. Extremities: No presence of trace or pitting edema in lower extremities bilaterally, dorsalis pedis pulses +2 bilaterally Neuro: AAOx3, no focal motor or sensory deficits in the UE or LE bilat Psych: Good judgement, thought and behavior. Cooperative Objective Labs 10/09/24 04:48 10/09/24 04:48 Labs: Laboratory Results - last 24 hr 10/09/24 04:48 WBC 10.1 RBC 4.97 Hgb 13.5 D Hct 41.2 MCV 83 MCH 27.2 MCHC 32.8 RDW Std Deviation 42.0 Plt Count 305 D Neut % (Auto) 65 Lymph % (Auto) 19 [place] % (Auto) 10 Eos % (Auto) 6 Baso % (Auto) 0 Neut # (Auto) 6.6 Lymph # (Auto) 2.0 [place] # (Auto) 1.0 H Eos # (Auto) 0.6 H Baso # (Auto) 0.0 Immature Gran # (Auto) 0.04 H Absolute Nucleated RBC 0.00 Immature Gran % 0 Nucleated RBC % 0 Sodium 140 Potassium 4.1 Chloride 104 Carbon Dioxide 27.2 Anion Gap 9 BUN 8 L Creatinine 0.9 Estim Creat Clear Calc 131.7 eGFR > 60 BUN/Creatinine Ratio 9 L Glucose 169 H D Calculated Osmolality 281 Calcium 9.0 Corrected Calcium 9.3 Phosphorus 3.3 Magnesium 1.8 Total Bilirubin 0.8 AST 24 ALT 31 Alkaline Phosphatase 77 D Total Protein 5.8 Albumin 3.6 D Globulin 2.2 L Albumin/Globulin Ratio 1.6 Quality Measures Quality Measures VTE prophylaxis Assessment & Plan Assessment Current Active Medications: Generic Name Dose Route Start Last Admin Trade Name Freq PRN Reason Stop Dose Admin Acetaminophen 650 mg 10/08/24 05:46 Acetaminophen 325 Mg Tablet PO 11/07/24 05:45 Q6H PRN Fever >100.4 or pain 1-3 Hydrocodone Bitart/Acetaminophen 1 tab 10/08/24 05:46 Hydrocodone/Apap 5/325 Tablet PO 10/13/24 05:45 Q4HR PRN PAIN SCALE 4-6 (Moderate Atorvastatin Calcium 40 mg 10/09/24 21:00 Atorvastatin Calcium 20 Mg Tablet PO 11/08/24 20:59 HS RENATO Dextrose 25 ml 10/08/24 05:46 Dextrose 50%-Water Inj 50 Ml Syringe IV 11/07/24 05:45 Q15MIN PRN BG 50-70 responsive npo pt Dextrose 50 ml 10/08/24 05:46 Dextrose 50%-Water Inj 50 Ml Syringe IV 11/07/24 05:45 Q15MIN PRN BG <50 OR BG <70 & pt unresponsive Enoxaparin Sodium 40 mg 10/08/24 09:00 10/09/24 08:46 Enoxaparin Sod Inj 40 Mg/0.4 Ml Syringe SC 10/22/24 08:59 40 mg QDAY RENATO Administration Glucagon 1 mg 10/08/24 05:46 Glucagon Inj 1 Mg Vial IM Q15MIN PRN BG <70, and no IV access Hydralazine HCl 10 mg 10/08/24 11:52 Hydralazine Inj 20 Mg/Ml Vial IVP 11/07/24 11:51 Q4H PRN BP > 180/110 Insulin Degludec 10 unit 10/09/24 21:00 Insulin Degludec 5 Unit/0.05 Ml (Per 5 Units) [place] 11/08/24 20:59 HS [facility] Insulin Human Lispro 0 unit 10/09/24 17:00 Insulin Lispro (Admelog) 1 Unit/0.01 Ml Unit [place] 11/08/24 16:59 AC [facility] Protocol Insulin Human Lispro 2 unit 10/09/24 12:00 Insulin Lispro (Admelog) 1 Unit/0.01 Ml Unit [place] 11/08/24 11:59 TIDWM [facility] Morphine Sulfate 2 mg 10/08/24 05:46 10/08/24 08:22 Morphine Sulf Inj 10 Mg/Ml Vial IVP 10/13/24 05:45 2 mg Q4HR PRN Administration PAIN SCALE 7-10 (Severe Ondansetron HCl 4 mg 10/08/24 05:46 10/08/24 08:21 Ondansetron Inj 2 Mg/Ml Inj 2 Ml IVP 11/07/24 05:45 4 mg Q6H PRN Administration NAUSEA OR VOMITING Protocol Pantoprazole Sodium 40 mg 10/08/24 09:00 10/09/24 08:45 Pantoprazole Inj 40 Mg Vial IVP 11/07/24 08:59 40 mg QDAY RENATO Administration Plan 48 y/o M with history of type 2 diabetes, hypertension, and prior SBO (required NG tube decompression) admitted with one week of intractable nausea/vomiting and severe crampy abdominal pain. # Small bowel obstruction- resolved Recurrent SBO (prior NG decompression 3?4 years ago), s/p small bowel series Plan: * IV fluids, electrolyte repletion as needed * Clear liquid diet, advanced, will monitor * Trend CBC, CMP, lactate # Hyperglycemia in type 2 diabetes mellitus Glucose 326 on presentation, last fingerstick reading of 225, A1c of 12.3 Plan: * Insulin sliding scale * Started basal bolus regiment: Basal 10 units degludec. Bolus 2 units lispro pre-meal * Monitor BMP and fingersticks ACHS # Hypertension Chronic Plan: * Resume home antihypertensive meds as needed. Currently BP is soft * PRN IV 10 mg hydralazine if BP 180/110 # Leukocytosis- improved Mild (WBC 10.1, yesterday 12.5), likely reactive. Afebrile, lipase and UA negative. 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 Esposito and my senior resident, Dr. Crystal Lemons, [facility] Attending Provider Attestation/Addendum I reviewed labs, imaging, EKG, home medications and prior available records. Face to face evaluation was performed by me. I have personally examined the patient and discussed assessment and plan with the IM team. I reviewed the resident note and agree with the plan with exceptions as below. High-grade SBO Uncontrolled diabetes mellitus with hyperglycemia, type II Leukocytosis Ordered small bowel series: The last photo showed resolution of the bowel obstruction Advance diet as tolerated Gave IV fluids Management of nausea/pain as needed Continue insulin therapy and monitor fingersticks A1c is 12.5 Trend WBC: Downtrending
--- NOTE | 2024-10-09 16:47 | PC.DIETICIAN ---
Nutrition Education (A1C=12.3): Patient was educated on dietary management of diabetes; written material was provided for future reference. *Consider prescribing a [employer] Adan 3 Plus sensor + [place] if discharged on insulin.
[2024-10-09] MEDS: INSULIN LISPRO (AdmeLOG) 1 UNIT/0.01 ML UNIT 2 UNIT SC (17:29)
[2024-10-09] MEDS: ATORVASTATIN CALCIUM 20 MG TABLET 40 MG PO (22:33)
[2024-10-09] MEDS: INSULIN DEGLUDEC 5 UNIT/0.05 ML (PER 5 UNITS) 10 UNIT SC (22:41)
[2024-10-10] VITALS: BP 101/66; PULSE 70; RESP 17; TEMP 36.1; O2SAT 96
[2024-10-10 04:00] VITALS: BP 106/68; PULSE 66; RESP 18; TEMP 36.3; O2SAT 96
[2024-10-10 05:28] LABS: Basophils # (Auto) 0.0 Thou/mm3 (0.0-0.2); Basophils % (Auto) 1 % (0-2.5); Eosinophils # (Auto) 0.5 Thou/mm3 (0.0-0.5); Eosinophils % (Auto) 5 % (0-10); Hematocrit 41.1 % (41.0-53.0); Hemoglobin 13.5 g/dL (13.5-16.0); Immature Granulocytes Auto 0.04 Thou/mm3 (0.00-0.00); Lymphocytes # (Auto) 1.6 Thou/mm3 (1.0-4.8); Lymphocytes % (Auto) 18 % (10-50); Mean Corpuscular HGB Conc 32.8 g/dl (31.0-37.0); Mean Corpuscular Hemoglobin 26.9 pg (25.0-35.0); Mean Corpuscular Volume 82 fL (80-100); Monocytes # (Auto) 0.8 Thou/mm3 (0.0-0.8); Monocytes % (Auto) 9 % (0-12); Neutrophils # (Auto) 5.9 Thou/mm3 (1.8-7.7); Neutrophils % (Auto) 67 % (37-80); Nucleated Red Blood Cell # 0.00 Thou/mm3 (0.00-0.00); Nucleated Red Blood Cell % 0 /100 WBC (0); Platelet Count 284 Thou/mm3 (140-440); RDW Standard Deviation 40.8 fL (35.1-43.9); Red Blood Count 5.02 Miln/mm3 (4.50-5.90); White Blood Count 8.8 Thou/mm3 (3.8-10.6)
[2024-10-10 05:54] LABS: Alanine Aminotransferase 36 U/L (10-49); Albumin, Serum 3.8 gm/dL (3.5-5.0); Albumin/Globulin Ratio 1.7 (1.2-2.2); Alkaline Phosphatase 79 U/L (46-116); Anion Gap 9 (7-16); Aspartate Amino Transferase 26 U/L (0-34); BUN/Creatinine Ratio 8 Ratio (12-20); Bilirubin,Total 0.8 mg/dL (0.3-1.2); Blood Urea Nitrogen 6 mg/dL (9-23); Calcium 9.3 mg/dL (8.3-10.6); Calcium (Corrected) 9.5 mg/dL (8.5-10.1); Carbon Dioxide 27.1 mMol/L (20.0-31.0); Chloride 101 mMol/L (98-107); Creatinine (Component) 0.8 mg/dL (0.6-1.3); Estimated Creatinine Clearance 146.0 mL/min (>60); Globulin 2.2 gm/dL (2.3-3.5); Glucose 154 mg/dL (74-106); Magnesium 1.8 mg/dL (1.6-2.6); Osmolality,Calculated 274 (275-295); Phosphorous 4.2 mg/dL (2.4-5.1); Potassium 4.0 mMol/L (3.4-5.1); Sodium 137 mMol/L (136-145); Total Protein 6.0 gm/dL (5.7-8.2); eGFR > 60 See Note
[2024-10-10] MEDS: INSULIN LISPRO (AdmeLOG) 1 UNIT/0.01 ML UNIT SC ×2 (07:57→11:43)
[2024-10-10] MEDS: INSULIN LISPRO (AdmeLOG) 1 UNIT/0.01 ML UNIT 2 UNIT SC ×2 (07:57→11:44)
[2024-10-10 08:00] VITALS: BP 127/76; PULSE 73; RESP 18; TEMP 36.3; O2SAT 95
[2024-10-10] MEDS: ENOXAPARIN SOD INJ 40 MG/0.4 ML SYRINGE SC (08:00)
--- NOTE | 2024-10-10 11:52 | PD.RESDS ---
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 Associated with crampy abdominal pain. Vitally was stable on presentation, labs showed mild elevation of WBC to 12.5 most likely reactive, CMP showed significant elevation of blood glucose to 326, and A1c level was 12.3. Imaging showed high-grade mechanical small bowel obstruction on CT scan Gastrografin follow-through for 2 days showed complete resolution of the obstruction and patient had multiple episodes of bowel movements. During his stay patient blood sugar was controlled with insulin. Of note he had similar episode of what appears to be small bowel obstruction 4 years ago and it was resolved without surgical intervention. Patient deemed to be clinically stable for discharge today and was given the following instructions: Discharge instructions: ? Follow-up with your primary care physician within 1 week from discharge ? Increase your soft diet and fibers to prevent recurrent of your small bowel obstruction ? Use medications as prescribed ? You are newly diagnosed with diabetes mellitus, follow-up with your primary care physician regarding controlled with blood sugar ? Take blood glucose read 3 times a day, discuss the results with your PCP ? Continue your injections of Ozempic every week, follow-up with the primary care physician to increase the dose to goal ? We prescribed a new medication called metformin 1 g extended release once a day ? In case of worsening of your symptoms please return to the ED as soon as possible ? Use medications as prescribed Discharging diagnosis #SBO, spontaneous resolution #History of newly diagnosed type 2 diabetes mellitus #History of hypertension #History of Glass's palsy - Patient's plan and care discussed with my attending, Dr. Vaibhav Ceballos MD Internal Medicine PGY-3 Time Spent with Patient Time attestation: Total time spent providing and/or coordinating discharge services: Time spent: Greater than 30 minutes Exam Vital Signs Temp Pulse Resp BP Pulse Ox O2 Del Method 97.3 F 73 18 127/76 95 Room Air 10/10/24 08:00 10/10/24 08:00 10/10/24 08:00 10/10/24 08:00 10/10/24 08:00 10/10/24 08:00 Narrative Exam GEN: AOx3, able to speak full sentences HEENT: NC/AC, PERRLA, oral mucosa moist, neck supple CVS: RRR, S1-S2 present, no murmurs appreciated RESP: CTAB GI: soft,non distended, non tender, NBS MSK: able to move all 4 limbs, no lower extremity edema SKIN: warm and dry ROAD TEST EXAMINER: CN II-XII and Sensation grossly intact. Discharge Plan Plan Patient Disposition: HOME (Self Care) Patient condition on transfer: Stable Care Plan Goals: Discharge instructions: ? Follow-up with your primary care physician within 1 week from discharge ? Increase your soft diet and fibers to prevent recurrent of your small bowel obstruction ? Use medications as prescribed ? You are newly diagnosed with diabetes mellitus, follow-up with your primary care physician regarding controlled with blood sugar ? Take blood glucose read 3 times a day, discuss the results with your PCP ? Continue your injections of Ozempic every week, follow-up with the primary care physician to increase the dose to goal ? We prescribed a new medication called metformin 1 g extended release once a day ? In case of worsening of your symptoms please return to the ED as soon as possible ? Use medications as prescribed Prescriptions/Referrals Prescriptions/Med Rec: New metformin 1,000 mg tablet extended release 24hr 1,000 mg PO QDAY 14 Days Qty: 14 0RF Continued atorvastatin 40 mg tablet 40 mg PO DAILY Patient Comments: TAKE 1 TABLET BY MOUTH ONCE DAILY Ozempic 0.25 mg or 0.5 mg (2 mg/3 mL) pen injector 0.5 mg SUBCUT .Qwed Patient Comments: INJECT 0.5MG SUBCUTANEOUSLY ONCE A WEEK FOR DIABETES Referrals: Nikole Monet PA-C [Primary Care Provider] - Patient/Caregiver Discharge Instructions Discharge Activity: activity as tolerated Education Materials: A1C, Abdominal Pain, Small Bowel Obstruction, Blood Sugar Monitoring and ..., Can You Control Diabetes ... Print Language: Filipino Stand Alone Forms: Hina Award Info., Patient Portal Info Letter Discharge Order Discharge Orders: Discharge (Routine); Ordered 10/10/24 Ordered By: Glenn Ceballos Quality Discharge Quality Measures VTE prophylaxis MD Attestestation MD Attestation I reviewed labs, imaging, EKG, home medications and prior available records. Face to face evaluation was performed by me. I have personally examined the patient and discussed assessment and plan with the IM team. I reviewed the resident note and agree with the plan with exceptions as below. High-grade SBO Uncontrolled diabetes mellitus with hyperglycemia, type II Leukocytosis Ordered small bowel series: The last photo showed resolution of the bowel obstruction He tolerated his advanced diet Low fiber diet Management of nausea/pain as needed A1c is 12.5. Metformin and Ozempic upon discharge. Monitor fingersticks and follow-up with PCP Trend WBC: Downtrending Time spent is 35 minutes. More than 50% of the time was spent on patient education and coordination of care.
[2024-10-10 12:00] VITALS: BP 107/81; PULSE 70; RESP 16; TEMP 36.1; O2SAT 95
== END 2024-10-10 14:38 | disposition home or self-care (01) | DRG 247 ==
LOC: SERX 04:32 → S3SX 08:51 → SERHOLD 10-10 13:48
PROVIDERS: Physician Assistant; Admitting Provider Student in an Organized Health Care Education/Training Program; Emergency Provider Emergency Medicine; PCP Physician Assistant; Visit Provider Student in an Organized Health Care Education/Training Program
DX: K56.699 Other intestinal obstruction unspecified as to partial versus complete obstruction (principal); I10 Essential (primary) hypertension; E11.65 Type 2 diabetes mellitus with hyperglycemia; D72.829 Elevated white blood cell count, unspecified; R29.810 Facial weakness; Z87.891 Personal history of nicotine dependence
CPT/HCPCS: 36415; 74018; 74022; 74177; 74250; 80053; 80307; 80320; 81001; 83036; 83605; 83690; 83735; 84100; 85025; 96361; 96374; 96375; 96376; 99284; A4649; J1650; J1815; J2270; J2405; J2470; J7030; Q9963; Q9967; A9270; G0480